=== PATIENT | female | born 1965 | race African-American/Black ===

== ENCOUNTER → 2018-09-29 | Outpatient (CLI) | payer BC ==
[2015-09-01 23:00] VITALS: BP 130/86
[~2018-09-29] MED LIST: SULF1TAB24 PO
--- NOTE | 2018-09-29 13:05 | KCIC ---
STUDY: MRI of the left knee without contrast INDICATION: Persistent posterior left knee pain. Recurrent instability. COMPARISON: No prior cross-sectional imaging available for comparison. TECHNIQUE: Multiplanar MR imaging of the left knee performed without the use of intravenous or intra-articular contrast. FINDINGS: Menisci: Extensive tearing/maceration of the lateral meniscus, particularly notable at the posterior horn. Diminutive, mildly extruded and irregular medial meniscus without full thickness tear component. Cruciate ligaments: The PCL is intact. Diminutive but intact ACL. Collateral ligaments: No acute injury to the medial or lateral collateral ligamentous structures. Some probable reactive edema along the distal IT band. Tendons: Distal quadriceps tendinosis/mild low-grade partial tearing. Proximal patellar tendinosis. No acute musculotendinous injury at the knee. Cartilage: Advanced knee arthrosis with extensive high grade/full thickness chondral loss at all compartments though most severe at the lateral compartment. Associated subchondral edema/cystic change also most pronounced at the lateral compartment. Bones: Multifocal osteophyte formation in the setting of advanced knee arthrosis. No acute fracture. Degenerative widening across the posterior aspect of the lateral compartment. Miscellaneous: Large septated Reyes's cyst with synovitis. Large knee joint effusion with synovitis as well as scattered loose bodies such as seen at the lateral recess, image 13 series 3. Proximal tibiofibular joint effusion. IMPRESSION: 1. Extensive tearing/maceration of the lateral meniscus, particularly at the posterior horn. Diffusely diminutive and irregular, as well as mildly extruded, medial meniscus without discrete tear. 2. Diminutive but intact ACL. 3. Advanced tricompartmental osteoarthrosis with multifocal high-grade/full-thickness cartilage loss most severe at the lateral compartment. 4. Large knee joint effusion with synovitis and loose bodies as well as a large Reyes's cyst with synovitis. 5. Distal quadriceps tendinosis/mild partial tearing as well as proximal patellar tendinosis. Electronically signed by: STEVEN KEARNS MD (09/29/2018 1:02 PM) [facility]
== END | disposition home or self-care (01) ==
LOC: KCIC MRI 08:30
PROVIDERS: ATTEND Family Medicine
DX: M17.12 Unilateral primary osteoarthritis, left knee (principal); M25.762 Osteophyte, left knee; M71.22 Synovial cyst of popliteal space [Baker], left knee; M65.862 Other synovitis and tenosynovitis, left lower leg; M25.462 Effusion, left knee; M23.42 Loose body in knee, left knee; M23.52 Chronic instability of knee, left knee
CPT/HCPCS: 73721

== ENCOUNTER → 2019-03-18 | Outpatient (CLI) | payer BC ==
[2015-09-01 23:00] VITALS: BP 130/86
--- NOTE | 2019-03-18 13:31 | KCIC ---
EXAM: Chest, 2 views. HISTORY: Cough. COMPARISON: None. FINDINGS: 2 views of the chest are obtained. There is no infiltrate, pleural effusion or pneumothorax. The heart is normal in size. IMPRESSION: No acute pulmonary finding. Electronically signed by: Ashley Sullivan MD (03/18/2019 1:28 PM) [place] [id number]
== END | disposition home or self-care (01) ==
LOC: KCIC 12:55
PROVIDERS: ATTEND Family Medicine
DX: R05 Cough (principal)
CPT/HCPCS: 71046

== ENCOUNTER 2019-07-10 22:13 | Emergency (ER) | payer BC, OTHER ==
[~2019-07-10] VITALS: Ht 162.6 cm; Wt 75.3 kg
[2019-07-10] MEDS ORDERED: KETOROLAC 60 MG/2 ML VIAL. IM ONE (23:00)
[2019-07-10] MEDS ORDERED: TRAM50TA PO (23:30)
[2019-07-10] MEDS ORDERED: DICL50TA4 PO (23:30)
[2019-07-10] MEDS ORDERED: ORPH100T PO (23:30)
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
[2019-07-10 23:35] VITALS: BP 146/86
== END 2019-07-10 23:50 | disposition home or self-care (01) ==
LOC: ER 22:13
DX: S39.012A Strain of muscle, fascia and tendon of lower back, initial encounter (principal); M25.562 Pain in left knee; Z88.0 Allergy status to penicillin; Z91.018 Allergy to other foods; V89.2XXA Person injured in unspecified motor-vehicle accident, traffic, initial encounter; Y93.89 Activity, other specified; Y92.89 Other specified places as the place of occurrence of the external cause; Y99.8 Other external cause status
CPT/HCPCS: 72100; 96372; 99283; J1885